=== PATIENT | female | born 1980 | race Caucasian/White ===

== ENCOUNTER 2024-11-24 19:41 | Emergency (ER) | payer OTHER ==
[~2024-11-24] VITALS: Ht 154.9 cm; Wt 59.9 kg
[2024-11-24] MEDS ORDERED: NALOXONE HCL 2 MG/2 ML SYR IV ONE (20:00)
[2024-11-24] MEDS ORDERED: ondansetron HCL 4 MG/2 ML VIAL IV ONE (20:00)
[2024-11-24] MEDS ORDERED: NALOXONE HCL 2 MG/2 ML SYR NAS ONE (20:00)
[2024-11-24] MEDS ORDERED: SODIUM CHLORIDE 0.9% 500 ML IV PRN (20:00)
[2024-11-24 20:25] LABS: HEMATOCRIT 36.3 % (35.0-50.0); HEMOGLOBIN 12.4 g/dL (12.0-18.0); MCH 29.6 (27-36); MCV 86.9 fl (81-99); PLATELET COUNT 386 K/uL (140-440); RBC 4.18 M/ul (4.3-5.7); RDW 14.1 (10.5-15.0)
[2024-11-24 20:39] LABS: BASOPHILS, MANUAL DIFF 1; LYMPHOCYTES, MANUAL DIFF 14; MONOCYTES, MANUAL DIFF 7; NEUTROPHILS, MANUAL DIFF 78
[2024-11-24 20:41] LABS: ALBUMIN 3.5 g/dL (3.4-5.0); ALBUMIN/GLOBULIN RATIO 0.69 (1.1-2.4); ALCOHOL, MEDICAL <3 ng/dL (<3); ALKALINE PHOSPHATASE 72 U/L (46-116); ALT (SGPT) 46 U/L (14-59); ANION GAP 12.1 (7-21); AST (SGOT) 30 U/L (15-37); BILIRUBIN, TOTAL 0.4 ng/dL (0.2-1.0); BUN/CREATININE RATIO 16.66 (6.0-28.6); CALCIUM 9.6 mg/dL (8.5-10.1); CARBON DIOXIDE 30 mmol/L (21-32); CHLORIDE 100 mmol/L (98-107); CREATININE, SERUM 0.72 mg/dL (0.55-1.02); GLOMERULAR FILTRATION RATE,EST 106 mL/min (>60); MAGNESIUM 1.8 mg/dL (1.8-2.4); POTASSIUM 4.1 mmol/L (3.5-5.1); PROTEIN, TOTAL 8.6 g/dL (6.4-8.2); UREA NITROGEN 12 mg/dL (7-18)
[2024-11-24 21:08] LABS: AMPHETAMINES, URINE POSITIVE (NEGATIVE); BARBITURATES, URINE NEGATIVE (NEGATIVE); BENZODIAZEPINE, URINE NEGATIVE (NEGATIVE); BUPRENORPHINE, URINE NEGATIVE (NEGATIVE); CANNABINOID, URINE NEGATIVE (NEGATIVE); COCAINE, URINE NEGATIVE (NEGATIVE); ECSTASY, URINE POSITIVE (NEGATIVE); FENTANYL, URINE POSITIVE (NEGATIVE); METHADONE, URINE NEGATIVE (NEGATIVE); OPIATES, URINE NEGATIVE (NEGATIVE); OXYCODONE, URINE POSITIVE (NEGATIVE); PHENCYCLIDINE, URINE NEGATIVE (NEGATIVE)
[2024-11-24] MEDS ORDERED: NALOXONE 4 MG NASAL SPRAY #2 HOME.PACK NAS ONE (22:30)
[2024-11-24 22:34] VITALS: BP 109/72
== END 2024-11-24 22:45 | disposition home or self-care (01) ==
LOC: ED 19:41
PROVIDERS: Family Medicine
DX: F19.10 Other psychoactive substance abuse, uncomplicated (principal)
CPT/HCPCS: 36415; 71045; 74018; 80053; 80307; 83735; 84703; 85025; 99284-25; G0480; J2310; J3490; J7040